=== PATIENT | male | born 1960 | race African-American/Black ===

== ENCOUNTER 2017-01-31 16:36 | Emergency (ER) | payer MEDICAID, OTHER ==
[~2017-01-31] VITALS: Ht 170.2 cm; Wt 102.3 kg
[~2017-01-31 16:36] MED LIST: NO MEDS
[2017-01-31] MEDS ORDERED: SERT50TA12 PO (16:46)
[2017-01-31] MEDS ORDERED: LISI-660 PO (16:46)
[2017-01-31] MEDS ORDERED: METF500T4 PO (16:46)
[2017-01-31 16:57] LABS: GLUCOSE,POINT OF CARE 87 MG/DL (70-110)
[2017-01-31] MEDS ORDERED: LORazepam 2 MG/ML VIAL IVP ONE (20:30)
[2017-01-31] MEDS ORDERED: DEXAMETHASONE SOD PHOS 4 MG/ML 5 ML VIAL IVP ONE (20:30)
[2017-01-31] MEDS ORDERED: MORPHINE SULFATE 4 MG/ML SYRINGE IVP ONE (20:30)
[2017-01-31 21:30] VITALS: BP 135/88
== END 2017-01-31 22:21 | disposition home or self-care (01) ==
LOC: EMS 16:39
DX: M54.12 Radiculopathy, cervical region (principal); Z87.891 Personal history of nicotine dependence
CPT/HCPCS: 71010; 72040; 82962; 93005; 96374; 96375; 99284; J1100; J2060; J2270

== ENCOUNTER 2019-11-03 11:10 | Emergency (ER) | payer OTHER ==
[~2019-11-03] VITALS: Ht 175.3 cm; Wt 118.2 kg
[~2019-11-03 11:10] MED LIST changes: +LISI-660 PO; +METF-960 PO; -NO MEDS; +SERT50TA12 PO
[2019-11-03] MEDS ORDERED: METF-960 PO (11:16)
[2019-11-03 11:25] LABS: GLUCOSE,POINT OF CARE 198 MG/DL (70-110)
[2019-11-03] MEDS ORDERED: KETOROLAC TROMETHAMINE 60 MG/2 ML VIAL IM ONE (12:30)
[2019-11-03] MEDS ORDERED: CYCLOBENZAPRINE HCL 10 MG TABLET PO ONE (12:30)
[2019-11-03] MEDS ORDERED: OMEG-116 PO (12:38)
[2019-11-03] MEDS ORDERED: METF-463 PO (12:38)
[2019-11-03] MEDS ORDERED: SERT100T12 PO (12:38)
[2019-11-03] MEDS ORDERED: ASPI-1198 PO (12:38)
[2019-11-03] MEDS ORDERED: LISI-662 PO (12:38)
[2019-11-03] MEDS ORDERED: TRAZ-252 PO (12:38)
[2019-11-03] MEDS ORDERED: ATOR40TA71 PO (12:38)
[2019-11-03] MEDS ORDERED: BECL10.62 IH (12:38)
[2019-11-03] MEDS ORDERED: AMLO5TAB66 PO (12:38)
[2019-11-03] MEDS ORDERED: HYDR-1475 PO (12:38)
[2019-11-03 13:35] VITALS: BP 141/79
== END 2019-11-03 13:56 | disposition home or self-care (01) ==
LOC: EMS 11:11
DX: M54.12 Radiculopathy, cervical region (principal); E11.9 Type 2 diabetes mellitus without complications; F12.90 Cannabis use, unspecified, uncomplicated; Z98.890 Other specified postprocedural states; Z87.891 Personal history of nicotine dependence; Z79.899 Other long term (current) drug therapy; Z79.84 Long term (current) use of oral hypoglycemic drugs
CPT/HCPCS: 82962; 93005; 96372; 99283; J1885

== ENCOUNTER 2021-07-08 06:21 | Emergency (ER) | payer OTHER ==
[~2021-07-08] VITALS: Ht 170.2 cm; Wt 86.4 kg
[~2021-07-08 06:21] MED LIST changes: +AMLO5TAB66 PO; +ASPI-1198 PO; +ATOR40TA71 PO; +BECL10.62 IH; +HYDR25TA2 PO; -LISI-660 PO; +LISI-894 PO; +METF-911 PO; -METF-960 PO; +OMEG-116 PO; +SERT-162 PO; -SERT50TA12 PO; +TRAZ-252 PO
[2021-07-08] MEDS ORDERED: IBUPROFEN 600 MG TABLET PO ONE (06:45)
[2021-07-08] MEDS ORDERED: DOXYCYCLINE HYCLATE 100 MG TABLET PO ONE (06:45)
[2021-07-08] MEDS ORDERED: LIDOCAINE/PF 1% 2 ML VIAL IM ONE (06:45)
[2021-07-08] MEDS ORDERED: CefTRIAXone SODIUM 1 GM/VIAL IM ONE (06:45)
[2021-07-08] MEDS ORDERED: ValACYclovir HCL 500 MG TABLET PO ONE (06:45)
[2021-07-08] MEDS ORDERED: FLUCONAZOLE 150 MG TABLET PO ONE (06:45)
[2021-07-08 07:00] VITALS: BP 119/75
[2021-07-08] MEDS ORDERED: ACETAMINOPHEN 500 MG TABLET PO ONE (08:15)
[2021-07-08 08:53] LABS: APPEARANCE,URINE CLEAR (CLEAR); BILIRUBIN,URINE NEGATIVE (NEGATIVE); GLUCOSE, URINE (UA) NEGATIVE (NEGATIVE); KETONES,URINE NEGATIVE (NEGATIVE); LEUKOCYTE ESTERASE ,URINE MODERATE (NEGATIVE); NITRATE,URINE NEGATIVE (NEGATIVE); OCCULT BLOOD,URINE NEGATIVE (NEGATIVE); PROTEIN,URINE TRACE (NEGATIVE)
[2021-07-08 09:00] LABS: BACTERIA,URINE None Seen /HPF (None Seen); RBC,URINE None Seen /HPF (0-2)
[2021-07-08] MEDS ORDERED: CEPHALEXIN MONOHYDRATE 500 MG CAPSULE PO ONE (09:30)
== END 2021-07-08 09:35 | disposition home or self-care (01) ==
LOC: EMS 06:22
DX: N48.1 Balanitis (principal); B00.9 Herpesviral infection, unspecified; E11.9 Type 2 diabetes mellitus without complications; F12.90 Cannabis use, unspecified, uncomplicated; Z87.891 Personal history of nicotine dependence; Z79.899 Other long term (current) drug therapy; Z79.84 Long term (current) use of oral hypoglycemic drugs
CPT/HCPCS: 81001; 87086; 87491; 87591; 96372; 99284; J0696; J3490